=== PATIENT | female | born 1985 | race Caucasian/White ===

== ENCOUNTER → 2017-07-13 | Outpatient (CLI) | payer OTHER ==
[~2017-07-13] MED LIST: HYDR-5688 PO; KETO10TA PO; ONDA4TAB46 PO; SINCALIDE IV ONE; SODIUM CHLORIDE 0.9% IV ONE; SULF800T23 PO
--- NOTE | 2017-07-13 14:53 | DIAGNOSTIC IMAGING REPORT ---
NUCLEAR HEPATOBILIARY SCAN WITH EJECTION FRACTION IMAGING CLINICAL HISTORY: Right upper quadrant abdominal pain. COMPARISON STUDY: No priors. TECHNIQUE: Dynamic images of the liver and anterior abdomen were obtained every 5 minutes for a total of 60 minutes following the IV administration of 5.7mCi of technetium 99m Choletec. 1 mcg of sincalide was then injected with additional images acquired every 5 minutes for 45 minutes to calculate the gallbladder ejection fraction. FINDINGS: The hepatobiliary scan shows prompt and homogeneous hepatic uptake. There is visualized activity within the intra and extrahepatic biliary tree at 10 minutes, and within the gallbladder at 10 minutes. There is normal biliary to bowel transit, with small bowel visualized by 40 minutes. On the sincalide imaging, the gallbladder ejection fraction was measured at 86%. IMPRESSION: 1. Unremarkable nuclear hepatobiliary scan. There is no scintigraphic evidence of cholecystitis. 2. The gallbladder ejection fraction measured 86% which is normal. Electronically signed by: Denver Byrnes M.D. 07/13/2017 2:52 PM Dictated Date/Time: 07/13/2017 2:51 PM
== END | disposition home or self-care (01) ==
LOC: C.NUCL 12:36
PROVIDERS: ATTEND Surgery
DX: R10.11 Right upper quadrant pain (principal)